=== PATIENT | male | born 1985 | race African-American/Black ===

== ENCOUNTER 2023-08-29 12:28 | Emergency (ER) | payer MEDICAID, SELFPAY ==
--- NOTE | ~2023-08-29 | XR_ITS ---
EXAMINATION: XR CHEST CLINICAL INFORMATION: Chest pain. COMPARISON: None available. TECHNIQUE: 2 views of the chest were obtained. FINDINGS: No significant abnormality is noted involving the heart, lungs, mediastinum, bony thorax or soft tissues. XR/XR chest 2V IMPRESSION: Unremarkable chest exam
[2023-08-29 12:57] VITALS: BP 143/86; PULSE 59; RESP 18; TEMP 36.8; O2SAT 98; BMI 40.5
--- NOTE | 2023-08-29 12:57 | ED_ITS ---
HPI - Allergic Reaction General Chief complaint: General Medical Stated complaint: Swelling in face, hives Time Seen by Provider: 08/29/23 13:06 Source: patient Mode of arrival: ambulatory Limitations: no limitations History of Present Illness HPI narrative: 37 year old male history of asthma presenting with chest discomfort, shortness of breath, nausea, vomiting times 4-5 days. Patient reports that this morning when he woke up he noticed hives ?all over his body ?and noted that part of his face appeared slightly more swollen than usual. He denies new exposures in medications. Patient denies abdominal pain, diarrhea, urinary symptoms, vision changes, weakness. No family history of sudden cardiac . Related Data Previous Rx's Medication Instructions Recorded diphenhydramine HCl 25 mg capsule 25 mg PO TID PRN allergic reaction 08/29/23 (Benadryl) #20 caps Allergies Allergy/AdvReac Type Severity Reaction Status Date / Time acetaminophen [From TYLENOL] Allergy Intermediate RASH Unverified 06/20/20 15:24 DIARRHEA AND STOMACH PAIN Environmental Allergy Unknown Uncoded 06/23/18 00:00 Review of Systems 2 Review of Systems: Constitutional : No Weight loss, No Fever, No Chills, + Fatigue, No Malaise ENT/Mouth : No sore throat, No Rhinorrhea Eyes: No Eye Pain, No Swelling, No Redness Cardiovascular : + Chest Pain, + SOB, No Dyspnea on Exertion, No Orthopnea, No Edema, No Palpitations Respiratory : No Cough, No Sputum, No Wheezing Gastrointestinal : No Nausea, No Vomiting, No Diarrhea, No Constipation, No abdominal Pain, No Hematochezia, No Melena Genitourinary : No Dysuria, No Urinary Frequency, No Hematuria, Musculoskeletal : No joint pain, No Myalgias, No Joint Swelling Skin : No Skin Lesions, + rash Neuro : No Weakness, No Numbness, No Dizziness, No Headache Psych : No Anxiety/Panic, No Depression All other systems reviewed and are negative Yes all other systems are reviewed and are negative [facility] Past Medical History Attestation statement: The following information was validated with the patient. Source: old records reviewed and nursing notes reviewed Social History Advance Directives: No Advance Directives Information Provided: No Physical Exam ED Vital Signs: Vital Signs - 24 hr 08/29/23 12:57 Temperature 98.2 F Pulse Rate 59 Respiratory Rate 18 Blood Pressure 143/86 H Pulse Oximetry 98 Oxygen Delivery Method Room Air BMI result Body Mass Index 40.5 vss Appearance: Alert.? Oriented X3.? No acute distress.? Head: Normocephalic, atraumatic, no step-offs or deformities Eyes: Pupils equal, round and reactive to light.? ENT: Pharynx normal midline uvula. Speaking in full sentences controlling secretions well. Neck: Normal inspection.? Neck supple.? CVS: Normal heart rate and rhythm.? Pulses normal.? Respiratory: No respiratory distress.? Breath sounds normal.? Abdomen: Soft and nontender.? Skin: Skin warm and dry.? Normal skin color.? Normal skin turgor.? Extremities: No lower extremity edema.? No calf ttp. 5/5 strength to bilateral upper and lower extremities 2+ radial pulses equal and b/l Neuro: Oriented X 3.? No motor deficit.? No sensory deficit. CN 2-12 intact . Ambulating with steady gait normal coordination Course Course Course Narrative: RME: 37yo M w/PMHx asthma c/o chest pain x4-5 days, w/ mild SOB, nausea, vomiting, worsening. Admits woke up this morning w/hives all over body & chin swelling. denies new exposures/medications no appreciable rash in triage, talking in complete sentences, nontoxic appearing. denies fever, diarrhea, urinary sx EKG, labs, CXR ordered Full HPI, ROS and PE to be performed by primary ED provider. Reevaluation(s) Reevaluation #1: CBC appears within normal limits, chemistry unremarkable, trop negative ekg non ischemic asymptomatic sandie no intervention needed HEART score 1 no need for repeat trop. Coags normal PERC negative no need for dimer i do not suspect PE. Covid negative. CXR pending Time: 14:48 Reevaluation #2: Patient still reporting cp toradol ordered. Time: 15:01 Reevaluation #3: Second troponin pending. Sign out to Jorge A COON Time: 17:54 Additional Reevaluation(s): Patient's repeat troponin negative, he is stable for discharge Medications Administered Discontinued Medications Generic Name Dose Route Start Last Admin Trade Name Freq PRN Reason Stop Dose Admin Diphenhydramine HCl 50 mg 08/29/23 13:51 08/29/23 14:36 Diphenhydramine Hcl 25 Mg Capsule PO 08/29/23 13:52 50 mg ONCE ONE Administration Ketorolac Tromethamine 30 mg 08/29/23 15:01 08/29/23 15:17 Ketorolac Tromethamine 15 Mg/Ml Vial IM 08/29/23 15:02 30 mg ONCE ONE Administration Ondansetron HCl 4 mg 08/29/23 15:24 08/29/23 15:31 Ondansetron Hcl 4 Mg/2 Ml Vial IVPUSH 08/29/23 15:25 4 mg ONCE ONE Administration Medical Decision Making Medical Decision Making [facility] Narrative: [age]-year-old male presents with chest pain, shortness of breath, rash, nausea, vomiting , facial swelling x5 days Physical exam benign ( patient states he sees a rash on his cheeks, unable to visualize provider in triage also didn't visualize a rash) Concerns for viral illness versus allergic reaction. No signs of threat to her airway, neurovascular compromise, ACS, pulmonary embolism, dissection, acute respiratory distress, angioedema, anaphylaxis . Patient PERC negative . No signs of dental abscess Plan- labs, ekg, viral test Differential Diagnosis Differential Diagnoses: The differential diagnosis associated with the presentation includes Concerns for viral illness versus allergic reaction. No signs of threat to her airway, neurovascular compromise, ACS, pulmonary embolism, dissection, acute respiratory distress , angioedema, anaphylaxis . . Patient PERC negative No signs of dental abscess Admission/Observation Consideration of admission/observation: Escalation of care including admission/observation considered Lab Data [facility] Lab Attestation statement: I reviewed the patient's lab results. 08/29/23 13:21 08/29/23 13:21 Labs: Lab Results 08/29/23 08/29/23 08/29/23 Range/Units 13:21 13:26 16:41 WBC 10.6 (4.8-10.8) X10*3/uL RBC 5.67 (4.60-5.80) X10*6/uL Hgb 16.1 (14.0-18.0) g/dl Hct 47.9 (42.0-52.0) % MCV 84.5 (80.0-98.0) fL MCH 28.4 (27.0-33.0) pg MCHC 33.6 (31.0-36.0) g/dl RDW 13.7 (11.0-16.0) % Plt Count 212 (160-400) X10*3/uL MPV 10.7 (9.4-12.4) fL Immature Gran % (Auto) 0.4 (0.0-0.4) % Neut % (Auto) 69.2 (45-73) % Lymph % (Auto) 20.3 (20-40) % [place] % (Auto) 6.0 (2-11) % Eos % (Auto) 3.8 (0-4) % Baso % (Auto) 0.3 (0-2) % Lymph # (Auto) 2.2 (1.2-4.9) X10*3/uL [place] # (Auto) 0.6 (0.1-1.2) X10*3/uL Eos # (Auto) 0.4 (0.0-0.4) X10*3/uL Baso # (Auto) 0.0 (0.0-0.2) X10*3/uL Abs Immat Gran (auto) 0.04 H (0.00-0.03) X10*3/uL Absolute Neuts (auto) 7.4 (2.0-8.3) x10*3/uL Absolute Nucleated RBC 0.000 (0.0-0.012) X10*3/uL Nucleated RBC % (auto) 0.0 (0.0-0.2) /100WBC PT 12.0 (11.1-13.3) SEC INR 1.0 (0.9-1.1) APTT 31.2 (26.0-36.4) SEC Sodium 139 (135-145) mmol/L Potassium 4.5 (3.3-5.1) mmol/L Chloride 107 (96-108) mmol/L Carbon Dioxide 24 (22-29) mmol/L Anion Gap 13 (12-20) BUN 11 (9-16) mg/dL Creatinine 1.07 (0.5-1.4) mg/dL Estim Creat Clear Calc 125.8 Estimated GFR > 60 Random Glucose 100 (60-115) mg/dL Calcium 9.4 (8.4-10.2) mg/dL Magnesium 2.1 (1.6-2.6) mg/dL Total Bilirubin 0.9 (0.0-1.0) mg/dL Direct Bilirubin 0.2 (0.0-0.5) mg/dL AST 19 (5-37) U/L ALT 12 (0-40) U/L Alkaline Phosphatase 50 (39-117) U/L Troponin I High Sens < 2.7 < 2.7 (<3.5-35.0) ng/L Total Protein 7.5 (6.5-8.0) g/dL Albumin 4.6 (3.5-5.0) g/dL COVID-19 (JOSÉ) Negative (Negative) COVID-19 Clin Com See Note Independent Interpretation I performed an independent interpretation of an: EKG and Plain X-Ray Radiology Impression Discussion of test interpretation with radiology: I have reviewed the radiologist's reading. Critical Care Time Critical Care Time Critical Care Time: No Discharge Plan Discharge Clinical Impression: Chest pain, Nausea Patient Disposition: Home, Self-Care Instructions: Chest Pain (ED), Acute Nausea and Vomiting (ED) Additional Instructions: Take your medications as prescribed. If you were prescribed antibiotics today, it is important that you take your medication to their entirety, do not skip any doses, do not finish them early. Follow-up with your primary care provider this week. Return to the emergency department with new or worsening symptoms. Such as fevers, chills, chest pain, shortness of breath, nausea, vomiting, dizziness, headache, vision changes, lethargy In case of emergency call 911 Prescriptions: New diphenhydramine HCl [Benadryl] 25 mg capsule 25 mg PO TID PRN (Reason: allergic reaction) Qty: 20 0RF Referrals: [facility] [place] [place] [facility] [Provider Group] - 1 week Physician,Unknown J [Primary Care Provider] - 2 days Stand Alone Forms: Work/School Release
--- NOTE | 2023-08-29 12:58 | ECG_ITS ---
Test Reason : CHEST PAIN Blood Pressure : / mmHG Vent. Rate : 052 BPM Atrial Rate : 052 BPM P-R Int : 178 ms QRS Dur : 100 ms QT Int : 398 ms P-R-T Axes : 068 037 019 degrees QTc Int : 370 ms Sinus bradycardia Otherwise normal ECG When compared with ECG of 04-JUL-2011 22:29, Heart rate has decreased Referred By: Dina Flores Electronically Signed By:VAZQUEZ SLADE MD
[2023-08-29 13:26] LABS: Basophils Percent Auto 0.3 % (0-2); Eosinophils Absolute Auto 0.4 X10*3/uL (0.0-0.4); Eosinophils Percent Auto 3.8 % (0-4); Hematocrit 47.9 % (42.0-52.0); Hemoglobin 16.1 g/dl (14.0-18.0); Imm Gran Abs Auto 0.04 X10*3/uL (0.00-0.03); Imm Gran Pct Auto 0.4 % (0.0-0.4); Lymphocytes Absolute Auto 2.2 X10*3/uL (1.2-4.9); Lymphocytes Percent Auto 20.3 % (20-40); MANUAL DIFF FLAG NO; Mean Corpuscular HGB Conc 33.6 g/dl (31.0-36.0); Mean Corpuscular Hemoglobin 28.4 pg (27.0-33.0); Mean Corpuscular Volume 84.5 fL (80.0-98.0); Mean Platelet Volume 10.7 fL (9.4-12.4); Monocytes Absolute Auto 0.6 X10*3/uL (0.1-1.2); Neutrophils Absolute Auto 7.4 x10*3/uL (2.0-8.3); Neutrophils Percent Auto 69.2 % (45-73); Platelet Count 212 X10*3/uL (160-400); Red Blood Count 5.67 X10*6/uL (4.60-5.80); Red Cell Distribution Width 13.7 % (11.0-16.0); White Blood Count 10.6 X10*3/uL (4.8-10.8)
--- NOTE | 2023-08-29 13:32 | PC.NURSE ---
alert and oriented, respirations even and unlabored. placed on monitoring tech, NSR. iv established, labs drawn and sent. patient reporting rash and swelling to his shoulders and face, none noted at this time however patient is stating that his chin is still swollen, none observed.
[2023-08-29 13:40] LABS: Partial Thromboplastin Time 31.2 SEC (26.0-36.4)
[2023-08-29 13:42] LABS: COVID-19 Test Negative (Negative); IDNOW Serial# 6674DD1D
[2023-08-29 13:44] LABS: Alanine Aminotransferase 12 U/L (0-40); Albumin Level 4.6 g/dL (3.5-5.0); Alkaline Phosphatase 50 U/L (39-117); Anion Gap 13 (12-20); Aspartate Amino Transferase 19 U/L (5-37); Bilirubin Direct 0.2 mg/dL (0.0-0.5); Bilirubin Total 0.9 mg/dL (0.0-1.0); Blood Urea Nitrogen 11 mg/dL (9-16); Calcium 9.4 mg/dL (8.4-10.2); Carbon Dioxide 24 mmol/L (22-29); Chloride 107 mmol/L (96-108); Creatinine Clr Calc Pharmacy 125.8; Estimated Glomerular Filt Rate > 60; Glucose Random 100 mg/dL (60-115); Magnesium 2.1 mg/dL (1.6-2.6); Potassium 4.5 mmol/L (3.3-5.1); Sodium 139 mmol/L (135-145); Total Protein 7.5 g/dL (6.5-8.0)
[2023-08-29 13:51] LABS: Troponin-I High Sensitivity < 2.7 ng/L (<3.5-35.0)
[2023-08-29] MEDS: diphenhydrAMINE HCL 25 MG CAPSULE 50 MG PO (14:36)
[2023-08-29] MEDS: Ketorolac Tromethamine 15 MG/ML VIAL 30 MG IM (15:17)
[2023-08-29] MEDS: ondansetron HCL 4 MG/2 ML VIAL IVPUSH (15:31)
[2023-08-29 17:11] LABS: Troponin-I High Sensitivity < 2.7 ng/L (<3.5-35.0)
== END 2023-08-29 18:10 | disposition home or self-care (01) ==
PROVIDERS: Physician Assistant; Emergency Provider Emergency Medicine
DX: R07.89 Other chest pain (principal); R11.2 Nausea with vomiting, unspecified; R06.02 Shortness of breath; L50.9 Urticaria, unspecified; Z11.52 Encounter for screening for COVID-19; Z20.822 Contact with and (suspected) exposure to COVID-19; Z79.899 Other long term (current) drug therapy
CPT/HCPCS: 36415; 71046; 80048; 80076; 83735; 84484; 85025; 85610; 85730; 87635; 93005; 96372; 99284; 99285; J1885; J2405

== ENCOUNTER 2024-07-19 11:53 | Emergency (ER) | payer OTHER, SELFPAY ==
[2024-07-19 12:04] VITALS: BP 120/70; PULSE 78; RESP 18; TEMP 36.6; O2SAT 100; BMI 33.2
--- NOTE | 2024-07-19 12:08 | ED.GENADULT ---
HPI - General Adult General Chief complaint: General Medical Stated complaint: rash on chest/back-std testing Time Seen by Provider: 07/19/24 15:33 Source: patient Mode of arrival: ambulatory Limitations: no limitations History of Present Illness ED Provider: Micheline Nation PA-C HPI narrative: Patient is a 38 year old assigned male at with no reported medical history presenting to the emergency department today with a rash on his chest and low back as well as concerns of Chlamydia exposure. Patient states that he was recently exposed to someone who had recently had chlamydia and would like to be tested. Patient states that he has noticed a rash under his left pec and on his low back. Patient denies any dizziness, lightheadedness, abdominal pain, nausea, vomiting, fever, chills, blurry vision, double vision, loss of vision, chest pain, difficulty breathing, shortness of breath, back pain, night sweats, pain with urination, increased urinary frequency, increased urinary urgency, blood in his urine or stool, syncope or a near syncopal episode, recent trauma or falls, bowel incontinence, bladder incontinence, or any other complaints at this time. Relieving factors: none Exacerbating factors: none Associated symptoms: rash Treatments prior to arrival: none Related Data Previous Rx's ?Medication ?Instructions ?Recorded diphenhydramine HCl 25 mg capsule 25 mg PO TID PRN allergic reaction 08/29/23 (Benadryl) #20 caps hydrocortisone 2.5 % topical cream 1 appl topical BID PRN rash #20 07/19/24 grams Allergies Allergy/AdvReac Type Severity Reaction Status Date / Time acetaminophen [From TYLENOL] Allergy Intermediate RASH Verified 07/19/24 12:06 DIARRHEA AND STOMACH PAIN Environmental Allergy Unknown Unknown Uncoded 07/19/24 12:06 Review of Systems Constitutional: Constitutional: Reports no additional constitutional complaints, Denies chills, Denies fever(s) and Denies night sweats Eyes: Eyes: Reports no additional eye complaints, Denies blurry vision, Denies change in vision, Denies diplopia, Denies eye discharge, Denies loss of vision and Denies eye pain ENT: Denies dizziness Cardiovascular: Cardiovascular: Reports no additional cardiovascular complaints, Denies chest pain, Denies lightheadedness, Denies Loss of Consciousness and Denies dyspnea Respiratory: Respiratory: Reports no additional respiratory complaints and Denies dyspnea Gastrointestinal: Gastrointestinal: Reports no additional gastrointestinal complaints, Denies abdominal pain, Denies melena, Denies hematochezia, Denies change in bowel habits and Denies change in stool character Genitourinary: Genitourinary: Reports no additional male genitourinary complaints, Denies hematuria, Denies oliguria, Denies difficulty urinating, Denies dysuria, Denies urinary frequency, Denies urinary hesitancy, Denies urinary incontinence and Denies urinary urgency Musculoskeletal: Musculoskeletal: Reports no additional musculoskeletal complaints, Denies numbness and Denies tingling Integumentary/Breasts: Skin/Breast: Reports rash Comments: rash to left chest and low back Neurologic: Denies dizziness, Denies loss of vision, Denies numbness and Denies tingling Psychiatric: Psychiatric: Reports no additional psychiatric complaints Endocrine: Endocrine: Reports no additional endocrine complaints Hematologic/Lymphatic: Hematologic/Lymphatic: Reports no additional hematologic/lymphatic complaints Allergic/Immunologic: Allergic/Immunologic: Reports no additional allergic/immunologic complaints PMFSH Past Medical History Attestation statement: The following information was validated with the patient. Source: old records reviewed and nursing notes reviewed Social History Social History Advance Directives: No Do you have a plan to hurt others: No Plan Physical Exam ED Vital Signs: Vital Signs - 24 hr 07/19/24 12:04 07/19/24 15:23 07/19/24 16:01 Temperature 98 F 97.5 F 97.5 F Pulse Rate 78 53 53 Respiratory Rate 18 18 18 Blood Pressure 120/70 139/79 139/79 Pulse Oximetry 100 97 97 Oxygen Delivery Method Room Air Room Air Room Air BMI result Body Mass Index 33.2 Const General: cooperative, no acute distress, alert and awake Nutritional Appearance: well nourished Orientation/consciousness: patient oriented x3 Limitations: no limitations HENMT Head: Yes normal to inspection and Yes atraumatic Ears: hearing grossly normal bilaterally and external ears normal General nose exam: Normal external nose present, no nasal discharge noted and no epistaxis Face and sinus: Yes normal facial exam, No abrasion and No laceration Mouth: Normal oral and palatal mucosa present, no drooling and no muffled voice Eyes General: appearance normal, both eyes and all related structures Periorbital: periorbital findings normal Eyelids: Yes eyelids normal Conjunctivae: conjunctivae normal Pupils: Equal, round and reactive pupils present EOM: EOMs intact bilaterally Neck Neck: Yes normal visual inspection, Yes full ROM and Yes no lymphadenopathy Chest Other: eczema type rash to the left chest just below the left pectoralis muscle Resp Effort & Inspection: normal respiratory effort and able to speak in complete sentences GI Inspection: Yes normal to inspection Back/Spine/Pelvis Other: eczema type rash to the top of the gluteal cleft Neuro General: patient oriented x3 and moves all extremities Cranial nerves: Yes Equal, round and reactive pupils present Cognition (Neuro): normal cognition Extrem General: Yes normal to inspection, Yes full ROM and Yes capillary refill normal Psych Appearance: grossly normal Mental Status: mental status grossly normal Affect: normal affect Attitude: cooperative Thought process: Normal thought process present Thought content: Normal thought content present Insight: Good insight present (Psych) Course Course Course Narrative: This is a Rapid Medical Examination (RME) performed by Alan Cannon PA-C in triage. Full HPI, ROS, assessment and treatment plan per primary provider in the Main ED. 38 yo male currently experiencing homelessness here for eval of rash to upper chest/ low back x months. rash is itchy, comes and goes. no discharge. no new meds/ abx. no new soaps/ lotions/ detergents. also endorses recent intercourse with new sexual partner. did not use protection. states this partner tested positive for chlamydia. would like to be tested. denies dysuria, penile discharge, fevers. Plan: labs, UA, ct/ng Medical Decision Making Medical Decision Making MDM Narrative: Patient is a 38 year old assigned male at with no reported medical history presenting to the emergency department today with concerns of STD and a rash. Patient's physical exam was as noted in the physical exam portion of this note. Patient's blood work showed a mild elevation of the white blood cell count at 14.9 but were otherwise unremarkable. Patient's urine showed no acute process. I explained my physical exam findings as well as all test results to the patient. I answered all questions asked by the patient. I stressed the importance of the patient taking his medication as directed (either prescribed or as the over the counter packaging recommends). I stressed the importance of the patient following up with his primary care provider. I stressed the importance of the patient returning to the emergency department immediately if his symptoms were to worsen or if he were to develop any dizziness, shortness of breath, difficulty breathing, chest pain, blurry vision, loss of vision, nausea, vomiting, abdominal pain, fever, chills, back pain, or any other complaints. Patient verbalized agreement and understanding with this treatment plan and discharge. Differential Diagnosis Differential Diagnoses: The differential diagnosis associated with the presentation includes Eczema Rash STD exposure Admission/Observation Consideration of admission/observation: Escalation of care including admission/observation considered Patient would have been admitted to the hospital had his work up had any findings where hospital admission was appropriate and his clinical presentation warranted hospital admission. Lab Data [facility] Lab Attestation statement: I reviewed the patient's lab results. My interpretation of these results are in the [facility] Rationale portion of this note. 07/19/24 13:11 07/19/24 13:11 Labs: Lab Results 07/19/24 Range/Units 13:11 WBC 14.9 H (4.8-10.8) X10*3/uL RBC 5.20 (4.60-5.80) X10*6/uL Hgb 15.4 (14.0-18.0) g/dl Hct 44.9 (42.0-52.0) % MCV 86.3 (80.0-98.0) fL MCH 29.6 (27.0-33.0) pg MCHC 34.3 (31.0-36.0) g/dl RDW 13.7 (11.0-16.0) % Plt Count 239 (160-400) X10*3/uL MPV 10.2 (9.4-12.4) fL Immature Gran % (Auto) 0.5 H (0.0-0.4) % Neut % (Auto) 73.9 H (45-73) % Lymph % (Auto) 14.3 L (20-40) % [place] % (Auto) 6.2 (2-11) % Eos % (Auto) 4.6 H (0-4) % Baso % (Auto) 0.5 (0-2) % Lymph # (Auto) 2.1 (1.2-4.9) X10*3/uL [place] # (Auto) 0.9 (0.1-1.2) X10*3/uL Eos # (Auto) 0.7 H (0.0-0.4) X10*3/uL Baso # (Auto) 0.1 (0.0-0.2) X10*3/uL Abs Immat Gran (auto) 0.07 H (0.00-0.03) X10*3/uL Absolute Neuts (auto) 11.0 H (2.0-8.3) x10*3/uL Absolute Nucleated RBC 0.000 (0.0-0.012) X10*3/uL Nucleated RBC % (auto) 0.0 (0.0-0.2) /100WBC Sodium 141 (135-145) mmol/L Potassium 4.3 (3.3-5.1) mmol/L Chloride 107 (96-108) mmol/L Carbon Dioxide 29 (22-29) mmol/L Anion Gap 9 L (12-20) BUN 11 (9-16) mg/dL Creatinine 1.01 (0.5-1.4) mg/dL Estim Creat Clear Calc 119.1 Estimated GFR > 60 Random Glucose 89 (60-115) mg/dL Calcium 9.3 (8.4-10.2) mg/dL Magnesium 1.9 (1.6-2.6) mg/dL Total Bilirubin 0.4 (0.0-1.0) mg/dL AST 17 (5-37) U/L ALT 14 (0-40) U/L Alkaline Phosphatase 41 (39-117) U/L Total Protein 5.9 L (6.5-8.0) g/dL Albumin 3.8 (3.5-5.0) g/dL Urine Color Yellow Urine Appearance Clear Urine pH 7.0 (5.0-9.0) Ur Specific [place] 1.020 (1.005-1.025) Urine Protein Negative (Neg-Trace) mg/dL Urine Glucose (UA) Negative (Negative) mg/dL Urine Ketones Negative (Negative) mg/dL Urine Blood Negative (Negative) Urine Nitrite Negative (Negative) Ur Leukocyte Esterase Negative (Negative) Chlam trachomat DNA PCR NOT DETECTED (Not Detect.) N.gonorrhoeae DNA (PCR) NOT DETECTED (Not Detect.) Discharge Plan Discharge Clinical Impression: Eczema, Exposure to STD Patient Disposition: Home, Self-Care Instructions: Male Condom Use (ED), Safe Sex Practices (ED), Dermatitis (ED) Additional Instructions: Your rash is consistent with eczema for which you should use hydrocortisone cream and follow up with a railroad track repair supervisor. Your sexually transmitted infection testing was negative. Follow up with your primary care provider. Return to the emergency department immediately if your symptoms worsen or if you develop any dizziness, shortness of breath, difficulty breathing, chest pain, blurry vision, loss of vision, nausea, vomiting, abdominal pain, fever, chills, back pain, or any other complaints. Prescriptions: New hydrocortisone 2.5 % cream 1 appl topical BID PRN (Reason: rash) Qty: 20 0RF No Action diphenhydramine HCl [Benadryl] 25 mg capsule 25 mg PO TID PRN (Reason: allergic reaction) Qty: 20 0RF Referrals: [facility] [Provider Group] (Call to establish and follow up with a railroad track repair supervisor.) [facility] [place] [facility] [place]] (Call to establish and follow up with a primary care provider. If you already have a primary care provider, please follow up with them.) [facility] [place] [facility]] (Call to establish and follow up with a primary care provider. If you already have a primary care provider, please follow up with them.) [facility] [place] [facility]Provider Group] (Call to establish and follow up with a primary care provider. If you already have a primary care provider, please follow up with them.) Stand Alone Forms: Work/School Release Interventions: ED Discharge Assessment Last Done: 07/19/24 16:01 Discharge Date/Time: 07/19/24 16:02 Print Language: Moroccan
[2024-07-19 13:16] LABS: MANUAL DIFF FLAG NO
[2024-07-19 13:18] LABS: Basophils Absolute Auto 0.1 X10*3/uL (0.0-0.2); Basophils Percent Auto 0.5 % (0-2); Eosinophils Absolute Auto 0.7 X10*3/uL (0.0-0.4); Eosinophils Percent Auto 4.6 % (0-4); Hematocrit 44.9 % (42.0-52.0); Hemoglobin 15.4 g/dl (14.0-18.0); Imm Gran Abs Auto 0.07 X10*3/uL (0.00-0.03); Imm Gran Pct Auto 0.5 % (0.0-0.4); Lymphocytes Absolute Auto 2.1 X10*3/uL (1.2-4.9); Lymphocytes Percent Auto 14.3 % (20-40); Mean Corpuscular HGB Conc 34.3 g/dl (31.0-36.0); Mean Corpuscular Hemoglobin 29.6 pg (27.0-33.0); Mean Corpuscular Volume 86.3 fL (80.0-98.0); Mean Platelet Volume 10.2 fL (9.4-12.4); Monocytes Absolute Auto 0.9 X10*3/uL (0.1-1.2); Monocytes Percent Auto 6.2 % (2-11); Neutrophils Percent Auto 73.9 % (45-73); Platelet Count 239 X10*3/uL (160-400); Red Cell Distribution Width 13.7 % (11.0-16.0); White Blood Count 14.9 X10*3/uL (4.8-10.8)
[2024-07-19 13:26] LABS: Appearance Urine Clear; Color Urine Yellow; Glucose Urine UA Negative (Negative); Leukocyte Esterase Urine Negative (Negative); Nitrite Urine Negative (Negative); Urine Blood Negative (Negative); Urine Ketones Negative (Negative); Urine Protein Negative (Neg-Trace)
[2024-07-19 13:41] LABS: Alanine Aminotransferase 14 U/L (0-40); Albumin Level 3.8 g/dL (3.5-5.0); Alkaline Phosphatase 41 U/L (39-117); Anion Gap 9 (12-20); Aspartate Amino Transferase 17 U/L (5-37); Bilirubin Total 0.4 mg/dL (0.0-1.0); Blood Urea Nitrogen 11 mg/dL (9-16); Calcium 9.3 mg/dL (8.4-10.2); Carbon Dioxide 29 mmol/L (22-29); Chloride 107 mmol/L (96-108); Creatinine Clr Calc Pharmacy 119.1; Estimated Glomerular Filt Rate > 60; Glucose Random 89 mg/dL (60-115); Magnesium 1.9 mg/dL (1.6-2.6); Potassium 4.3 mmol/L (3.3-5.1); Sodium 141 mmol/L (135-145); Total Protein 5.9 g/dL (6.5-8.0)
[2024-07-19 15:19] LABS: CT PCR NOT DETECTED (Not Detect.); NG PCR NOT DETECTED (Not Detect.)
[2024-07-19 15:23] VITALS: BP 139/79; PULSE 53; RESP 18; TEMP 36.4; O2SAT 97
[2024-07-19 16:01] VITALS: BP 139/79; PULSE 53; RESP 18; TEMP 36.4; O2SAT 97
== END 2024-07-19 16:02 | disposition home or self-care (01) ==
PROVIDERS: Physician Assistant Medical; Emergency Provider Emergency Medicine
DX: L30.9 Dermatitis, unspecified (principal); Z20.2 Contact with and (suspected) exposure to infections with a predominantly sexual mode of transmission; R21 Rash and other nonspecific skin eruption
CPT/HCPCS: 36415; 80053; 81003; 83735; 85025; 87491; 87591; 99283

== ENCOUNTER 2024-09-10 14:46 | Emergency (ER) | payer OTHER, SELFPAY ==
[2024-09-10 14:57] VITALS: BP 136/82; PULSE 70; RESP 18; TEMP 37.4; O2SAT 98; BMI 33.5
--- NOTE | 2024-09-10 14:57 | ED_ITS ---
HPI - Skin/Abscess/Foreign Bdy General Chief complaint: Skin/Abscess/Foreign Body Stated complaint: rash and ear deafness Time Seen by Provider: 09/10/24 15:01 Source: patient Mode of arrival: ambulatory Limitations: no limitations History of Present Illness ED Provider: Rebecca Terrell APRN HPI narrative: 38-year-old male with no known medical history presents the ER with complaints of rash on his chest and back for several months. Patient reports he was seen in July and diagnosed with atopic dermatitis. He was unaware that they had sent a prescription for hydrocortisone to his pharmacy and so he has not been using any prescriptions for this rash. He does not currently have a primary care doctor and has not followed with any air reduction equipment operator. He denies any pain to the rash. He does have some itching. No fevers or chills. Additionally the patient reports that a week ago he had some cough and congestion which has now resolved. For the last few days he has had right ear pain with muffled sensation, feel like there is water in my ear. Related Data Previous Rx's ?Medication ?Instructions ?Recorded diphenhydramine HCl 25 mg capsule 25 mg PO TID PRN allergic reaction 08/29/23 (Benadryl) #20 caps hydrocortisone 2.5 % topical cream 1 appl topical BID PRN rash #20 07/19/24 grams amoxicillin 500 mg capsule 500 mg PO BID #20 caps 09/10/24 fluticasone propionate 50 1 spray intranasal DAILY #16 grams 09/10/24 mcg/actuation nasal spray,suspension (Flonase Allergy Relief) hydrocortisone 2.5 % topical 1 appl topical BID PRN rash #453.6 09/10/24 ointment grams Allergies Allergy/AdvReac Type Severity Reaction Status Date / Time acetaminophen [From TYLENOL] Allergy Intermediate RASH Verified 09/10/24 15:00 DIARRHEA AND STOMACH PAIN Environmental Allergy Unknown Unknown Uncoded 07/19/24 12:06 Review of Systems Review of Systems: Yes all other systems are reviewed and are negative Constitutional: Constitutional: Reports no additional constitutional complaints, Denies body ache(s), Denies chills, Denies fever(s), Denies headache(s) and Denies weakness Eyes: Eyes: Reports no additional eye complaints and Denies change in vision ENT: Reports system reviewed and no additional complaints, except as document ed, Denies dizziness, Reports otalgia, Denies headache(s), Denies nasal congestion, Denies nasal discharge and Denies neck pain Cardiovascular: Cardiovascular: Reports no additional cardiovascular complaints, Denies chest pain, Denies leg edema and Denies dyspnea Respiratory: Respiratory: Reports no additional respiratory complaints, Denies cough and Denies dyspnea Gastrointestinal: Gastrointestinal: Reports no additional gastrointestinal complaints, Denies abdominal pain, Denies diarrhea, Denies nausea and Denies vomiting Genitourinary: Genitourinary: Denies urinary incontinence Musculoskeletal: Musculoskeletal: Reports no additional musculoskeletal complaints, Denies back pain, Denies arthralgias, Denies joint swelling, Denies neck pain, Denies numbness and Denies tingling Integumentary/Breasts: Skin/Breast: Reports system reviewed and no additional complaints, except as docu and Reports rash Neurologic: Reports system reviewed and no additional complaints, except as documented, Denies Abnormal speech present, Denies dizziness, Denies headache(s), Denies numbness, Denies tingling and Denies weakness PMFSH Past Medical History Attestation statement: The following information was validated with the patient. Source: old records reviewed and nursing notes reviewed Social History Social History Advance Directives: No Advance Directives Information Provided: No Physical Exam Vital Signs: Vital Signs: Last Vital Signs Temp 99.4 F 09/10/24 14:57 Pulse 70 09/10/24 14:57 Resp 18 09/10/24 14:57 BP 136/82 09/10/24 14:57 Pulse Ox 98 09/10/24 14:57 O2 Del Method Room Air 09/10/24 14:57 BMI result Body Mass Index 33.5 Const: General: cooperative, healthy appearing, comfortable and no acute distress Orientation/consciousness: patient oriented x3 Limitations: no limitations HEENT: Head: Yes normal to inspection Ears: hearing grossly normal bilaterally, TM normal on the left, mastoids normal, no periauricular adenopathy and TM abnormal wth effusion, erythematous and with fluid behind the TM; not perforated General nose exam: Normal external nose present Face and sinus: Yes normal facial exam Mouth: Normal oral and palatal mucosa present Throat: Yes posterior oropharynx normal, Yes tonsils normal and Yes uvula midline Eyes: General: appearance normal, both eyes and all related structures Pupils: Equal, round and reactive pupils present Neck: Neck: Yes normal visual inspection Chest: Chest palpation & inspection: normal inspection of the chest Resp: Effort & Inspection: normal respiratory effort Auscultation: clear to auscultation bilaterally Cardio: Rate: regular rate Rhythm: regular rhythm Peripheral pulses: Peripheral pulses 2+ throughout GI: Inspection: Yes normal to inspection Palpation (GI): Soft to palpation and nontender Auscultation: normal bowel sounds Back/Spine/Pelvis: Thoracic/Lumbar Spine: thoracic and lumbar spine normal to inspection Skin: Other: There are several lesions noted over the chest and over the lower back that of areas of scaling and pigmentation Neuro: General: patient oriented x3, no focal motor deficits and normal sensation to monofilament Cranial nerves: Yes Equal, round and reactive pupils present Cognition (Neuro): normal cognition Speech: No Abnormal speech present Gait exam (Neuro): Normal gait present Motor exam (neuro): 5/5 motor strength present throughout Extrem: General: Yes normal to inspection Medical Decision Making Medical Decision Making MDM Narrative: 38-year-old male with no known medical history presents the ER with complaints of rash on his chest and back for several months. Patient reports he was seen in July and diagnosed with atopic dermatitis. He was unaware that they had sent a prescription for hydrocortisone to his pharmacy and so he has not been using any prescriptions for this rash. He does not currently have a primary care doctor and has not followed with any air reduction equipment operator. He denies any pain to the rash. He does have some itching. No fevers or chills. Additionally the patient reports that a week ago he had some cough and congestion which has now resolved. For the last few days he has had right ear pain with muffled sensation, feel like there is water in my ear. On exam patient has a right effusion and otitis media. No evidence of mastoiditis, malignant otitis externa, perforation Exam is consistent with atopic dermatitis. No sloughing. Areas are blanchable. Low suspicion for dress syndrome, SJS, TEN Patient will be discharged with Flonase, amoxicillin and hydrocortisone topical with recommendations to follow up outpatient with Dermatology Differential Diagnosis Differential Diagnoses: The differential diagnosis associated with the presentation includes See discussion above Admission/Observation Consideration of admission/observation: Escalation of care including admission/observation considered External Record Review External record reviewed: Outside ED record Prescription Management I considered prescription management with: Pain Medication and Antibiotic Social Determinants Patient?s care significantly limited by Social Determinants of Health including: Problems related to primary support group Discharge Plan Discharge Clinical Impression: Atopic dermatitis, Acute ear infection Patient Disposition: Home, Self-Care Instructions: Ear Infection (ED), Dermatitis (ED) Additional Instructions: Use lukewarm water only for showering Use tide free and Clear laundry detergent Use dove soap unscented Use a gentle moisturizer like a Aquaphor or Aveeno Call your insurance to determine if you need a referral to see Dermatology You may call [facility] in [place] [phone] Prescriptions: New hydrocortisone 2.5 % ointment 1 appl topical BID PRN (Reason: rash) Qty: 453.6 0RF amoxicillin 500 mg capsule 500 mg PO BID Qty: 20 0RF fluticasone propionate [Flonase Allergy Relief] 50 mcg/actuation spray,suspension 1 spray intranasal DAILY Qty: 16 0RF Rx Instructions: administer into each nostril No Action diphenhydramine HCl [Benadryl] 25 mg capsule 25 mg PO TID PRN (Reason: allergic reaction) Qty: 20 0RF hydrocortisone 2.5 % cream 1 appl topical BID PRN (Reason: rash) Qty: 20 0RF Referrals: Physician,None [Primary Care Provider] - 1 week Print Language: Icelandic
[2024-09-10 15:29] VITALS: BP 136/82; PULSE 70; RESP 18; TEMP 37.4; O2SAT 98
== END 2024-09-10 15:30 | disposition home or self-care (01) ==
LOC: HO.ED 15:11
PROVIDERS: Emergency Provider Emergency Medicine Emergency Medical Services
DX: L30.8 Other specified dermatitis (principal); H66.91 Otitis media, unspecified, right ear; H83.03 Labyrinthitis, bilateral
CPT/HCPCS: 99282

== ENCOUNTER 2024-09-25 00:38 | Emergency (ER) | payer OTHER, SELFPAY ==
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
[2024-09-25 00:45] VITALS: BP 140/74; PULSE 60; RESP 16; TEMP 36.6; O2SAT 95; BMI 33.1
[2024-09-25 02:35] VITALS: BP 150/60; PULSE 63; RESP 16; TEMP 36.9; O2SAT 97
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
[2024-09-25] MEDS: traMADoL HCL 50 MG TABLET PO (03:06)
[2024-09-25 03:07] VITALS: BP 154/84; PULSE 61
[2024-09-25 03:09] VITALS: BP 154/80; PULSE 70
[2024-09-25 03:10] VITALS: BP 158/79; PULSE 65
[2024-09-25 03:20] LABS: Basophils Percent Auto 0.2 % (0-2); Eosinophils Percent Auto 0.2 % (0-4); Hematocrit 44.4 % (42.0-52.0); Imm Gran Abs Auto 0.06 X10*3/uL (0.00-0.03); Imm Gran Pct Auto 0.4 % (0.0-0.4); Lymphocytes Absolute Auto 1.7 X10*3/uL (1.2-4.9); Lymphocytes Percent Auto 10.2 % (20-40); MANUAL DIFF FLAG NO; Mean Corpuscular HGB Conc 33.8 g/dl (31.0-36.0); Mean Corpuscular Volume 85.9 fL (80.0-98.0); Mean Platelet Volume 10.1 fL (9.4-12.4); Monocytes Absolute Auto 0.8 X10*3/uL (0.1-1.2); Monocytes Percent Auto 4.7 % (2-11); Neutrophils Absolute Auto 14.1 x10*3/uL (2.0-8.3); Neutrophils Percent Auto 84.3 % (45-73); Platelet Count 247 X10*3/uL (160-400); Red Blood Count 5.17 X10*6/uL (4.60-5.80); Red Cell Distribution Width 14.3 % (11.0-16.0); White Blood Count 16.7 X10*3/uL (4.8-10.8)
[2024-09-25 03:25] LABS: INTERNATIONAL NORM RATIO 0.9 (0.9-1.1)
[2024-09-25 03:27] LABS: D Dimer High Sensitivity 215 NG/ML
[2024-09-25 03:34] LABS: Alanine Aminotransferase 27 U/L (0-40); Albumin Level 4.2 g/dL (3.5-5.0); Alkaline Phosphatase 39 U/L (39-117); Anion Gap 11 (12-20); Aspartate Amino Transferase 38 U/L (5-37); Bilirubin Direct 0.1 mg/dL (0.0-0.5); Bilirubin Total 0.4 mg/dL (0.0-1.0); Blood Urea Nitrogen 12 mg/dL (9-16); Calcium 8.8 mg/dL (8.4-10.2); Carbon Dioxide 25 mmol/L (22-29); Chloride 108 mmol/L (96-108); Creatinine Clr Calc Pharmacy 116.6; Estimated Glomerular Filt Rate > 60; Ethanol < 10 mg/dL; Glucose Random 114 mg/dL (60-115); Potassium 4.5 mmol/L (3.3-5.1); Sodium 139 mmol/L (135-145); Total Protein 6.6 g/dL (6.5-8.0)
[2024-09-25 03:43] LABS: Troponin-I High Sensitivity < 2.7 ng/L (<3.5-35.0)
[2024-09-25 05:04] LABS: Amphetamine Screen Urine Not Detected (Not Detect); Barbiturates, Urine Not Detected (Not Detect); Benzodiazepines Screen Urine Not Detected (Not Detect); Buprenorphine Scr Not Detected (Not Detect); Cannabinoid Screen Urine POSITIVE (Not Detect); Cocaine Screen Urine POSITIVE (Not Detect); Fentanyl, urine Not Detected (Not Detect); Methadone Screen, Urine Not Detected (Not Detect); Opiate Screen Urine Not Detected (Not Detect); Oxycodone Screen Urine Not Detected (Not Detect); Phencyclidine Screen Urine POSITIVE (Not Detect)
[2024-09-25] MEDS: Amoxicillin/Potassium Clav 875 MG TABLET PO (05:29)
[2024-09-25] MEDS: Diphth,Pertus(ACell),Tet Adult 0.5 ML SYRINGE IM (05:31)
[2024-09-25 05:40] VITALS: BP 158/79; PULSE 65; RESP 16; TEMP 36.9; O2SAT 97
== END 2024-09-25 05:42 | disposition home or self-care (01) ==
PROVIDERS: Emergency Provider Emergency Medicine; PCP Internal Medicine
DX: S00.11XA Contusion of right eyelid and periocular area, initial encounter (principal); S00.81XA Abrasion of other part of head, initial encounter; S02.85XA Fracture of orbit, unspecified, initial encounter for closed fracture; W19.XXXA Unspecified fall, initial encounter; F19.10 Other psychoactive substance abuse, uncomplicated; Y93.9 Activity, unspecified; Y92.410 Unspecified street and highway as the place of occurrence of the external cause; Y99.9 Unspecified external cause status; Z23 Encounter for immunization
CPT/HCPCS: 36415; 70450; 70486; 72125; 73030; 80048; 80076; 80307; 84484; 85025; 85379; 85610; 90471; 90715; 93005; 99284

== ENCOUNTER → 2024-09-25 02:45 | Outpatient (BNV) | payer OTHER, SELFPAY | PROVIDERS: Emergency Provider Emergency Medicine; PCP Internal Medicine; Visit Provider Internal Medicine Cardiovascular Disease | DX: R94.31 Abnormal electrocardiogram [ECG] [EKG] (principal) | CPT/HCPCS: 93010 ==

== ENCOUNTER 2025-03-12 18:42 | Emergency (ER) | payer OTHER, SELFPAY ==
--- NOTE | ~2025-03-12 | XR_ITS ---
CLINICAL HISTORY: trauma 3 view left shoulder Comparison: None Findings: Borderline widening of the left AC joint with otherwise mild osteoarthritic changes. Near anatomic alignment of the left glenohumeral joint, with mild osteoarthritis. No acute displaced fracture. Atelectasis partially imaged in the [id number]. No radiopaque foreign body. IMPRESSION: 1. No acute fracture or dislocation. 2. Borderline widening of the left AC joint. This document has been electronically signed by: Tawanda Mann MD on 03/12/2025 20:00:38
[2025-03-12 18:58] VITALS: BP 150/58; PULSE 64; RESP 16; TEMP 36.1; O2SAT 100; BMI 35.3
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
== END 2025-03-13 01:30 | disposition left against medical advice (07) ==
LOC: HO.ED 22:48
PROVIDERS: Emergency Provider Emergency Medicine; PCP Obstetrics & Gynecology
DX: G89.11 Acute pain due to trauma (principal); M25.512 Pain in left shoulder
CPT/HCPCS: 73030; 99281; 99283

== ENCOUNTER → 2025-03-12 19:02 | Outpatient (BNV) | payer OTHER, SELFPAY | PROVIDERS: PCP Obstetrics & Gynecology; Visit Provider Radiology Neuroradiology | DX: M19.012 Primary osteoarthritis, left shoulder (principal) | CPT/HCPCS: 73030 ==